=== PATIENT | female | born 1960 | race Caucasian/White ===

== ENCOUNTER 2022-05-15 00:53 | Day surgery (SDC) | payer OTHER, SELFPAY ==
[2022-04-29 13:24] VITALS: BMI 27.2
[2022-05-15 08:59] VITALS: BP 136/70; PULSE 70; RESP 19; TEMP 36.6; O2SAT 98
[2022-05-15] MEDS: LACTATED RINGERS 1,000 ML 150 ML IV CONT (09:10)
--- NOTE | 2022-05-15 09:18 | WPDANESEPPF ---
Anes - Initial Pre Proc Eval Procedure: Operation Date: 05/15/22 10:15 Proposed Procedures p Esophagogastroduodenoscopy - Lacho Mehta MD Date/Time: 05/15/22 09:18 Surgeon: Lacho Mehta MD Pre Op Diagnosis: GERD Patient Data Age: 61 Gender: F Height: 1.52 m Weight: 62.9 kg Last Vital Signs Temp 97.8 F 05/15/22 08:59 Pulse 70 05/15/22 08:59 Resp 19 05/15/22 08:59 BP 136/70 05/15/22 08:59 Pulse Ox 98 05/15/22 08:59 O2 Del Method Room Air 05/15/22 08:59 Allergies Allergy/AdvReac Type Severity Reaction Status Date / Time gabapentin [From Neurontin] Allergy Severe Swelling Verified 05/15/22 08:57 of Lip/Tongue/Throat Home Medications Medication Instructions Recorded Confirmed Type baclofen 10 mg tablet 10 mg PO DAILY 04/09/22 05/15/22 History ibuprofen 800 mg tablet 800 mg PO DAILY 04/29/22 05/15/22 History lidocaine 5 % topical patch 1 patch transdermal DAILY 04/29/22 05/15/22 History Patient hx anesthesia problems: none Family hx anesthesia problems: none Results Review: All pre-operative results and documents have been reviewed as part of the pre-operative evaluation. FOR[facility]LY [facility] Past Medical History Medical History (Updated 04/08/22 @ 13:12 by Courtney Hernandez APRN) Colon cancer screening Diabetes mellitus Obesity Social History Social History (Updated 04/09/22 @ 08:28 by Tram Pantoja MA) Smoking status: Former smoker Tobacco type: cigarettes Alcohol intake: never Substance use: never Living arrangements: with family Anes - Eval Final PreProcedure Day of Procedure 05/15/22 09:18 Patient weight: normal Heart: regular rate and rhythm Lungs: clear to auscultation Airway: Mallampati scale class II Neurological: alert and oriented Last oral intake: >/= 8 hours ASA classification: II Emergent: no Anesthetic plan: proceed Anesthesia type and monitoring: general GIVS and standard monitoring Results Review: All pre-operative results and documents have been reviewed as part of the pre-operative evaluation. Informed Consent: The patient's anesthetic plan and its attendant risks and benefits were discussed with the patient/family/POA. Questions were solicited and answers provided to the satisfaction of the patient/family/POA.
--- NOTE | 2022-05-15 09:27 | P.HP_ITS ---
History of Present Illness History of Present Illness Consent: Risks, benefits, and alternatives have been discussed and questions answered. Patient agrees to proceed with procedure. Chief complaint: GERD Narrative: Glenna Novak is a 61 year old female Presents for EGD. Patient has a history of chronic back issues. And underwent back surgery 3 or 4 years ago. Patient stop drinking alcohol which she used to drink heavily in 2018. She states over the last several years has had acid regurgitation occasional heartburn. This has worsened over the last 1 year now occurs on daily basis. She will have significant regurgitation. This occurs spontaneously throughout the day occasionally at night. she often will have associated heartburn. She does not throw up. She has minimal food regurgitation. Patient recently tried omeprazole for 3 weeks but stopped it because she did not feel it helped during that interval of time. Patient denies any bleeding. She has had no weight loss. She has no dysphagia. Family history noncontributory. Patient presents today for EGD to evaluate more thoroughly. Review of Systems Review of Systems: Review of systems noncontributory. COUNT INCLUDES THE [facility] Past Medical History Medical History (Updated 05/15/22 @ 09:35 by Lacho Mehta MD) Colon cancer screening Diabetes mellitus Obesity Social History Social History (Updated 04/09/22 @ 08:28 by Tram Pantoja MA) Smoking status: Former smoker Tobacco type: cigarettes Alcohol intake: never Substance use: never Living arrangements: with family Meds Home Medications and Allergies Home Medications Medication Instructions Recorded Confirmed Type baclofen 10 mg tablet 10 mg PO DAILY 04/09/22 05/15/22 History ibuprofen 800 mg tablet 800 mg PO DAILY 04/29/22 05/15/22 History lidocaine 5 % topical patch 1 patch transdermal DAILY 04/29/22 05/15/22 History Allergies Allergy/AdvReac Type Severity Reaction Status Date / Time gabapentin [From Neurontin] Allergy Severe Swelling Verified 05/15/22 08:57 of Lip/Tongue/Throat Vital Signs Vital Signs - 24 hr 05/15/22 08:59 Temperature 97.8 F Pulse Rate 70 Respiratory Rate 19 Blood Pressure 136/70 Pulse Oximetry 98 Oxygen Delivery Room Air Exam Narrative: Physical exam reveals patient to be alert. Vital signs stable. HEENT exam is unremarkable. Patient is anicteric. Lungs are clear to auscultation and percussion. Heart is without murmur or extra sounds. Abdomen bowel sounds are present soft nontender with no organomegaly. Assessment and Plan Assessment and plan (1) GERD (gastroesophageal reflux disease): Code(s): K21.9 - Gastro-esophageal reflux disease without esophagitis Status: Acute Assessment and Plan: Patient has ongoing regurgitation appears be consistent with acid reflux disease. Is been poorly responsive to medications. Patient states she prefers not to take medications. Tried omeprazole for 3 weeks with no response. Plan is for EGD at this time. Likely may benefit from increased dose of more strict anti-reflux measures. Further recommendations will be given after endoscopy.
[2022-05-15 09:59] VITALS: BP 134/81; PULSE 74; RESP 21; O2SAT 97
[2022-05-15 10:09] VITALS: BP 170/87; PULSE 60; RESP 21; O2SAT 100
[2022-05-15 10:21] VITALS: BP 176/94; PULSE 62; RESP 21; O2SAT 100
== END 2022-05-15 10:26 | disposition home or self-care (01) ==
PROVIDERS: Visit Provider Internal Medicine Gastroenterology
PROC: 0DJ08ZZ Inspection of Upper Intestinal Tract, Via Natural or Artificial Opening Endoscopic (ICD-10-PCS; CPT 43235; principal; 2022-05-15 10:15)
DX: K21.9 Gastro-esophageal reflux disease without esophagitis (principal); R11.10 Vomiting, unspecified; E11.9 Type 2 diabetes mellitus without complications; Z87.891 Personal history of nicotine dependence
CPT/HCPCS: 43239; 87081; J2001; J2704; J7120